=== PATIENT | male | born 1995 | race Caucasian/White ===

== ENCOUNTER 2019-01-16 12:35 | Emergency (ER) | payer SELFPAY ==
[2019-01-16 12:51] VITALS: TEMP 97.8
[2019-01-16] MEDS ORDERED: LIDOCAINE 1% W/ EPINEPHRINE 20 ML VIAL INJ ONE (12:53)
[2019-01-16] MEDS ORDERED: CHLORHEXIDINE GLUCONATE 4 % 15 ML UD TOP ONE (12:53)
[2019-01-16] MEDS ORDERED: TETANUS,DIPHTHERIA,PERTUSSIS 1 EA SYG IM ONE (12:57)
[2019-01-16] MEDS ORDERED: NEOMYCIN-BACITRACIN-POLYMYXIN 0.9 GM UD TOP ONE (13:46)
--- NOTE | 2019-01-16 13:59 | ED.PDOC ---
History of Present Illness - General Chief Complaint: Laceration Stated Complaint: laceration to head Time Seen by Provider: 01/16/19 12:43 Source: patient Exam Limitations: no limitations - History of Present Illness Initial Comments: Patient presents with a laceration to the forehead after he hit his head on a pole while skateboarding. He fell and hit the back of his head as well. He denies losing consciousness. His two friends witnessed it and said that he did not lose consciousness nor have a seizure. Patient denies N/V or sleepiness. He does have mild pain on the back of his head where he landed. No other injuries nor complaints. Tetanus vaccine not up to date. Severity: moderate Improving Factors: nothing Worsening Factors: nothing Associated Symptoms: other - as in HPI Allergies/Adverse Reactions: Allergies NO KNOWN ALLERGY Allergy (Verified 01/16/19 12:51) Home Medications: Ambulatory Orders NK 01/16/19 Review of Systems - Review of Systems Constitutional: States: no symptoms reported EENTM: States: no symptoms reported Respiratory: States: no symptoms reported Cardiology: States: no symptoms reported Gastrointestinal/Abdominal: States: no symptoms reported Genitourinary: States: no symptoms reported Musculoskeletal: States: no symptoms reported Skin: States: see HPI Neurological: States: no symptoms reported Endocrine: States: no symptoms reported Hematologic/Lymphatic: States: no symptoms reported Past Medical History (General) - Patient Medical History Hx Stroke: No Hx Congestive Heart Failure: No Hx Diabetes: No Surgical History: no surgical history - Vaccination History Hx Tetanus, Diphtheria Vaccination: - unknown Hx Influenza Vaccination: No - Social History Hx Tobacco Use: Yes Family Medical History - Family History Father Family History: Unknown Living Status: Unknown Physical Exam - Physical Exam General Appearance: Alert Eye Exam: bilateral normal Ears, Nose, Throat: normal ENT inspection Neck: non-tender, full range of motion, supple Respiratory: lungs clear, normal breath sounds Cardiovascular/Chest: normal peripheral pulses, regular rate, rhythm Gastrointestinal/Abdominal: normal bowel sounds, non tender, soft 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 1cm deep. Frontal bone not visible because of intact fascia. Hemostatic. Progress - Progress Progress: 01/16/19 14:01 Area was prepped and draped in a sterile fashion. 10 ml of lidocaine with epinephrine was used to gain excellent local anesthesia. 30 cc sterile NS used to irrigate the wound . 14 interrupted sutures using 4-0 Proline were used to approximate the wound edges. Area was clean, dry, and hemostatic upon completion. Patient tolerated procedure well. Tetanus booster given. Neuro test performed again at completion and was normal. No focal findings. No generalized complaints. Care instructions given. E.R. warnings given. Questions were elicited and answered. Patient voiced understanding and agreement with the plan. 01/16/19 14:07 Departure - Departure Clinical Impression: Laceration Disposition: Discharge to Home or Self Care Condition: Good Departure Forms: ED Discharge - Pt. Copy, Patient Portal Self Enrollment Instructions: DI for Laceration Repair, How to Care for a Laceration After Repair Diet: resume usual diet Activity: increase activity as tolerated Home Medications: Ambulatory Orders NK 01/16/19 Additional Instructions: Do not take aspirin, ibuprofen, Alleve, Naproxen, or Motrin for at least one week. Tylenol only for pain control. You may apply ice to the area for 15 minutes at a time for pain control. Apply topical Neosporin to the wound twice per day for at least three days. Return to the E.R. for two or more episodes of vomiting, excessive sleepiness, or behavior that is unusual for you. Have a family member or friend wake you up every two hours tonight to check and see if you are aware of where you are as well as the date. Return to the E.R. or clinic for suture removal in 7 days.
[2019-01-16 14:15] VITALS: BP 146/74; O2SAT 98
== END 2019-01-16 14:15 | disposition home or self-care (01) ==
LOC: ER 12:35
DX: S01.81XA Laceration without foreign body of other part of head, initial encounter (principal); W22.09XA Striking against other stationary object, initial encounter; Y93.51 Activity, roller skating (inline) and skateboarding; Z87.891 Personal history of nicotine dependence; Y92.9 Unspecified place or not applicable